=== PATIENT | male | born 2000 | race Caucasian/White ===

== ENCOUNTER 2024-12-10 08:42 | Emergency (ER) | payer OTHER, BC, SELFPAY ==
--- OUTSIDE RECORDS SUMMARY | 2024-12-10 08:44 | XMS_ITS | Clinical Summary ---
Author Organization [facility] Address [address] [place] [address] Care Team Providers Care Anesthesiology Teacher Name Role Phone Davion Frias MD Primary Care Provider [phone] Source Comments You are receiving this document as you are listed as the primary care provider,follow-up provider, or the patient has been referred to you for consultation.This is in compliance with the Medicare and[facility],which states Providers who transition their patient to another setting of careor provider of care or refers their patient to another provider of care shouldprovide summary care record for each transition of care or referral. [facility] Allergies No known active allergies Medications No known medications Active Problems No known active problems Resolved Problems Problem Noted Date Diagnosed Date Resolved Date Screening for HIV (human imm unodeficiency virus) 07/22/2021 07/22/2021 Immunizations Immunization Administration Dates Next Due Bexsero (Meningococcal Group B Vaccine) 08/27/2018,05/14/2018 DTaP 01/23/2005, 1,01/24/2000,1999,1999 Flu Vac (3+ yrs) 07/20/2009,08/06/2007 Flu Vac Preserv Free (3+yrs) 08/04/2015 [id number] 09/21/2009 HepA Ped/Adol (1-18 yrs) 04/14/2009,03/16/2008 HepB Ped/Adol (0-18 yrs) 01/24/2000,1999,1 Hib (HbOC) 12/20/2000,01/24/2000,1999 Hib (PRP-D) 1999 IPV (Polio) 01/23/2005, 1,1999,1998 Influenza IIV4 (Quadrivalent ) 0.5mL (68547) 07/22/2021,08/27/2018,08/16/2017,2015 Influenza LAIV (Nasal, 2-49 yrs) 07/25/2014,07/09 Influenza LAIV3 2-49 years (Flumist) ,07/31/2011,07/19/2010,2007,07/26/2006,08/14/2005 Influenza, Unspecified Formulation 09/14/2003 Influenza, Whole 10/15/2003 MCV4 (Menactra) 01/10/2011 MCV4 Menveo 2m.+ (two vial) 03/28/2016 MMR 01/23/2005,07/24/2000 Pneumococcal 7, PED 07/24/2001,12/20/2000,1999 TDAP (ADACEL) 01/10/2011 Tdap 07/22/2021 Typhoid (Typhim Vi, IM) 05/15/2019 Varicella 03/16/2008,07/24/2000 Family History Medical History Relation Name Comments Cancer Maternal Grandfather retinal cancer-radiation, okay now. Retinal Detachment Maternal Grandfather Amblyopia/Strabismus Negative Family History Blindness Negative Family History Cataract Negative Family History Diabetes Negative Family History Glaucoma Negative Family History Macular Degeneration Negative Family History Relation Name Status Comments Maternal Grandfather Social History Tobacco Use Types Packs/Day Years Used Date Smoking Tobacco: Never Smokeless Tobacco: Never Alcohol Use Standard Drinks/Week Comments Never 0 (1 standard drink = 0.6 oz pur e alcohol) AUDIT-C Answer Date Recorded Frequency of Alcohol Consumption Never 05/01/2020 Average Number of Drinks Not on file 020 Frequency of Binge Drinking Not on file 04/08 Sex and Gender Information Value Date Recorded Sex Assigned at Not on file Legal Sex Male 10:47 PM CDT Gender Identity Not on file Sexual Orientation Not on file Last Filed Vital Signs Vital Sign Reading Time Taken Comments Blood Pressure 127/72 07/22/2021 2:23 PM CDT Pulse 65 07/22/2021 2:23 PM CDT Temperature 36.8 C (98.3 F) 05/01/2020 6:33 PM CDT Respiratory Rate 16 11/24/2012 9:34 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 Oxygen Saturation - - Inhaled Oxygen Concentration - - Weight 71.7 kg (158 lb) 07/22/2021 2:23 PM CDT Height 182.9 cm (6') 05/01/2020 6:33 PM CDT Body Mass Index 21.43 05/01/2020 6:33 PM CDT Plan of Treatment Health Maintenance Due Date Last Done Comments Hep C Screening (Preventive Services) 1999 HPV Vaccine (1 - Male 3-dose series) 2014 HIV Screening (Preventive Services) 2015 Adult Preventive Visit 2017 Meningococcal B (3 of 5 - Increased Risk Bexsero 3-dose series) 12/25/2018 08/27/2018, 05/14/2018 COVID-19 Vaccine ( season) 2024 Influenza (#1) 2024 07/22/2021, 08/09, 08/27/2018, Additional history exists DTaP/Tdap/Td (8 - Tdap) 07/22/2031 07/22/20 21, 01/10/2011, 01/23/2005, Additional history exists Zoster/Shingles (1 of 2) 2049 HepB Completed 01/24/2000, 09/07, 1999 Hib Completed 12/20/2000, 01/06, 1999, Additional history exists Pneumococcal Aged Out 07/24/2001, 12/06, 07/24/2000 No longer eligible based on patient's age to complete this topic IPV (Polio) Completed 01/23/2005, 12/06, 1999, Additional history exists Varicella Completed 03/16/2008, 07/24/2000 HepA Completed 04/14/2009, 03/16/2008 MCV4 Completed 03/28/2016, 01/10/2011 Insurance HP SELF INSURED HP SELF INSURED SELF INSURED Care Teams Anesthesiology Teacher Relationship Specialty [place] [address] [place] [address] [facility] - General 11/08/15
[2024-12-10 08:51] VITALS: BP 137/71; PULSE 81; RESP 22; TEMP 36.6; O2SAT 100; BMI 23.3
--- NOTE | 2024-12-10 08:56 | CRLHL7_ITS ---
For Patients: As a result of the Cures Act, medical imaging exams and procedure reports are released immediately into your electronic medical record. You may view this report before your referring provider. If you have questions, please contact your health care provider. Indication: Shoulder injury. Technique: Left shoulder 3 views. Comparison: None. Findings: Bones: Anterior-inferior glenohumeral joint dislocation with subcoracoid location of the humerus. No acute fracture. Normal acromioclavicular and coracoclavicular intervals. Soft tissues: Unremarkable. Impression: Anterior-inferior glenohumeral joint dislocation. Dictated by Joaquina Chandler MD @ 12/10/2024 9:21:46 AM (Electronically Signed)
[2024-12-10] MEDS: LORazepam 2 MG/ML inj 1 MG IVP (09:03)
[2024-12-10] MEDS: HYDROmorphone 0.5 mg/0.5 ml inj IVP (09:04)
--- NOTE | 2024-12-10 09:32 | CRLHL7_ITS ---
For Patients: As a result of the Cures Act, medical imaging exams and procedure reports are released immediately into your electronic medical record. You may view this report before your referring provider. If you have questions, please contact your health care provider. INDICATION: Left shoulder, postreduction COMPARISON: Radiographs from earlier the same day TECHNIQUE: Three views left shoulder FINDINGS: Hill-Sachs impaction deformity. No other fracture. Normal alignment. Joint spaces are normal. No focal bone lesions. Normal bone mineralization. Soft tissue swelling around the shoulder. No foreign body. IMPRESSION: Reduction of the left glenohumeral dislocation. Left Hill-Sachs impaction fracture. Dictated by Sayra Griffiths MD @ 12/10/2024 9:57:15 AM (Electronically Signed)
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
--- OUTSIDE RECORDS SUMMARY | 2024-12-10 10:00 | XMS_ITS | Clinical Summary ---
Author Organization [facility] Address [address] [place] [address] Care Team Providers Care Hot Box Operator Name Role Phone Davion Frias MD Primary Care Provider Source Comments You are receiving this document as you are listed as the primary care provider,follow-up provider, or the patient has been referred to you for consultation.This is in compliance with the Medicare and[facility],which states Providers who [...] 07/20/2009,08/06/2007 Flu Vac Preserv Free (3+yrs) 08/04/2015 [id number] 09/21/2009 HepA Ped/Adol (1-18 yrs) 04/14/2009,03/16/2008 HepB Ped/Adol (0-18 yrs) 01/24/2000,1999,1 Hib (HbOC) 12/20/2000,01/24/2000,1999 Hib (PRP-D) 1999 IPV (Polio) 01/23/2005, 1,1999,1998 Influenza IIV4 (Quadrivalent ) 0.5mL ([id number]) 07/22/2021,08/27/2018,08/16/2017,2015 Influenza LAIV (Nasal, 2-49 yrs) 07/25/2014,07/09 [...] CDT Respiratory Rate 16 11/24/2012 9:34 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
== END 2024-12-10 11:11 | disposition home or self-care (01) ==
LOC: ED 09:58
PROVIDERS: Emergency Provider Emergency Medicine
DX: S43.015A Anterior dislocation of left humerus, initial encounter (principal); W01.0XXA Fall on same level from slipping, tripping and stumbling without subsequent striking against object, initial encounter
CPT/HCPCS: 23650; 73030; 96374; 96375; 99284; J1171; J2060